=== PATIENT | female | born 1995 | race Caucasian/White ===

== ENCOUNTER 2020-01-15 13:56 | Emergency (ER) | payer OTHER, SELFPAY ==
[2020-01-15 14:14] VITALS: BP 141/83; PULSE 84; RESP 17; O2SAT 100
[2020-01-15] MEDS: ONDANSETRON HCL ODT 4 MG TABLET PO (15:25)
--- NOTE | 2020-01-15 15:32 | ED.GENADULT ---
HPI - General Adult General Chief complaint: Extremity Injury, Lower Stated complaint: hip pain Time Seen by Provider: 01/15/20 14:37 Source: patient History of Present Illness HPI narrative: 24 years old history of left hip ligament injury over 10 months ago, scheduled for surgery, patient been to pain management clinic, steroid injection, been on anti-inflammatory medicine and muscle relaxant. Patient was not able to get hold of her orthopedic/pain management physician came for pain shot. Patient reported that the NSAID and muscle relaxants are not working. Patient denies any new trauma, fever, chills, nausea, vomiting. Patient just would like to get a pain shot to get some relief. Related Data Home Medications Medication Instructions Recorded Confirmed meloxicam 15 mg tablet 15 mg PO DAILY 09/21/19 09/27/19 Allergies Allergy/AdvReac Type Severity Reaction Status Date / Time lamotrigine Allergy Mild Rash Verified 01/15/20 14:16 pineapple Allergy Unknown ORAL Verified 01/15/20 14:16 SWELLING Review of Systems Review of Systems: Narrative: CONSTITUTIONAL: Denies fever, chills, or sweats. EYES: Denies visual changes, redness, or discharge. ENT: Denies rhinorrhea, congestion, sore throat, or otalgia. CARDIOVASCULAR: Denies chest pain, palpitations, or edema. RESPIRATORY: Denies cough or dyspnea. GASTROINTESTINAL: Denies abdominal pain, nausea, vomiting, or diarrhea. GENITOURINARY: Denies dysuria or hematuria. SKIN: Denies rash or itching. MUSCULOSKELETAL: Denies back pain, joint pain, or myalgia. NEUROLOGIC: Denies headache, numbness, or weakness. PSYCHIATRIC: Denies anxiety or depression. [facility] Past Medical History Medical History Anemia Cervical tear resulting from childbirth Third degree obstetrical tear Family History Family History Mother Family history of mental disorder Depression Family history of kidney stones Sibling Family history of mental disorder Depression Father Family history of diabetes mellitus in first degree relative Other Family history of cardiovascular disease Family history of neuropathy Social History Social History Smoking status: Never smoker Second hand tobacco smoke exposure: No Alcohol intake: current Substance use: never Exam Narrative: Exam Narrative: General appearance: Well-developed, well-nourished Skin: Normal color Head: Normocephalic, nontraumatic Eyes: Clear conjunctiva ENT: Oropharynx normal, ears normal, nose normal Neck: Supple, nontender Chest and respiratory: Airway patent, no respiratory distress, no accessory muscle use Heart: Regular rate/rhythm Abdomen: Soft, nontender, no organomegaly, quiet bowel sounds Vascular: Normal peripheral pulses, normal capillary refill. Musculoskeletal: Normal range of motion, nontender back, left hip showed slight limited range of motion, no bruises, no swelling, no deformity Neurologic: Alert and oriented ?3, [employer] is normal as tested, no gross motor deficit Course Course Emergency Course: Stable Vital Signs Vital signs: Vital Signs Pulse Rate 84 01/15/20 14:14 Respiratory Rate 17 01/15/20 14:14 Blood Pressure 141/83 H 01/15/20 14:14 Pulse Oximetry 100 01/15/20 14:14 Pulse Rate 84 01/15/20 14:14 Respiratory Rate 17 01/15/20 14:14 Blood Pressure 141/83 H 01/15/20 14:14 Pulse Oximetry 100 01/15/20 14:14 Medical Decision Making MDM Narrative Medical decision making narrative: Dilaudid 1 mg IM plus Zofran 4 mg ODT ordered. Further
[2020-01-15 16:21] VITALS: BP 143/74; PULSE 83; RESP 18; O2SAT 100
== END 2020-01-15 16:24 | disposition home or self-care (01) ==
PROVIDERS: Emergency Provider Emergency Medicine; PCP Physician Assistant
DX: M25.552 Pain in left hip (principal)
CPT/HCPCS: 96372; 99283; A9270; J1170

== ENCOUNTER 2020-10-05 20:55 | Emergency (ER) | payer OTHER, SELFPAY ==
[2020-10-05 20:57] VITALS: BP 134/75; PULSE 85; RESP 18; TEMP 36.2; O2SAT 100
[2020-10-05] MEDS: oxyCODONE/ACETAMINOPHEN (*CRX) 5-325 MG TABLET 1 TABLET PO (21:50)
--- NOTE | 2020-10-05 21:59 | ED.DENTAL ---
HPI - Dental/Oral General Chief complaint: Dental/Oral Stated complaint: broken teeth, pain Time Seen by Provider: 10/05/20 20:59 History of Present Illness HPI Narrative: Patient is a 25-year-old female who presents to the ER with dental pain. Teeth on the left side mainly lower jaw. She suffered a stress fracture while biting on the seat of a mixed aleman smoothie 6 days ago. She is gone undergo root canal in the next 4 days. No fevers or chills or sweats. No facial swelling. Pain increases with intake of fluids, breathing, and tapping of the teeth. No relief with Tylenol 3. Related Data Home Medications Medication Instructions Recorded Confirmed escitalopram oxalate 10 mg tablet 20 mg PO DAILY tablet 07/10/20 07/11/20 Allergies Allergy/AdvReac Type Severity Reaction Status Date / Time lamotrigine Allergy Mild Rash Verified 10/05/20 20:59 pineapple Allergy Unknown ORAL Verified 10/05/20 20:59 SWELLING Review of Systems Constitutional: Constitutional: Denies chills and Denies fever(s) ENT: Denies dysphagia Comments: Dental pain Respiratory: Respiratory: Denies cough and Denies dyspnea PMFSH Past Medical History Medical History (Updated 10/05/20 @ 22:12 by Adan Casiano MD) Anemia Cervical tear resulting from childbirth Third degree obstetrical tear Family History Family History Mother Family history of mental disorder Depression Family history of kidney stones Sibling Family history of mental disorder Depression Father Family history of diabetes mellitus in first degree relative Other Family history of cardiovascular disease Family history of neuropathy Social History Social History Smoking status: Never smoker Second hand tobacco smoke exposure: No Alcohol intake: former Substance use: never Gender identity (if verbalized by the patient): Female Sexual Orientation (if Verbalized by the Patient): Straight or Heterosexual Exam Narrative: Exam Narrative: GENERAL: Well-appearing, well-nourished, and in no acute distress. HEAD: Normocephalic, atraumatic. ENT: Mucous membranes moist. No visual evidence of abscess. No facial swelling. No large fracture of teeth. NEURO: Alert and oriented x3. PSYCH: Normal mood and affect. Course Course Emergency Course: Pain improving with Percocet. Discharge home. Vital Signs Vital signs: Vital Signs Temperature 97.1 F L 10/05/20 20:57 Pulse Rate 85 10/05/20 20:57 Respiratory Rate 18 10/05/20 20:57 Blood Pressure 134/75 10/05/20 20:57 Pulse Oximetry 100 10/05/20 20:57 Temperature 97.1 F L 10/05/20 20:57 Pulse Rate 85 10/05/20 20:57 Respiratory Rate 18 10/05/20 20:57 Blood Pressure 134/75 10/05/20 20:57 Pulse Oximetry 100 10/05/20 20:57 Discharge Plan Discharge Clinical Impression: Fracture of tooth Patient Disposition: Home, Self-Care Condition: Stable Instructions: Toothache (ED) Additional Instructions: Return to the ER if you cannot breathe, you cannot swallow, you have fever over 100.4 ?F, you have additional concerns. Prescriptions: New oxycodone-acetaminophen [Percocet] 5-325 mg tablet 1 tablet PO Q6H PRN (Reason: pain) Qty: 20 RF: 0 No Action escitalopram oxalate [Lexapro] 10 mg tablet 20 mg PO DAILY RF: 0 alprazolam 1 mg tablet 1 mg PO TID PRN (Reason: anxiety) Qty: 14 RF: 0 levothyroxine 25 mcg tablet 25 mcg PO DAILY Qty: 90 RF: 3 bupropion HCl [Wellbutrin XL] 150 mg tablet extended release 24 hr 150 mg PO QAM Qty: 30 RF: 0 hydrocodone-acetaminophen 5-325 mg tablet 1 tablet PO Q6H PRN (Reason: pain) Qty: 60 RF: 0 Follow-up/Referrals: Jovan Gomez DO [Primary Care Provider] -
== END 2020-10-05 22:20 | disposition home or self-care (01) ==
PROVIDERS: Emergency Provider Emergency Medicine; PCP Internal Medicine
DX: S02.5XXA Fracture of tooth (traumatic), initial encounter for closed fracture (principal); Z86.2 Personal history of diseases of the blood and blood-forming organs and certain disorders involving the immune mechanism; X58.XXXA Exposure to other specified factors, initial encounter
CPT/HCPCS: 99283; A9270

== ENCOUNTER 2021-04-02 18:50 | Emergency (ER) | payer OTHER, SELFPAY ==
[2021-04-02 18:56] VITALS: BP 127/85; PULSE 95; RESP 18; TEMP 36.5; O2SAT 100
[2021-04-02 19:50] VITALS: BP 121/88; PULSE 93; RESP 14; O2SAT 100
[2021-04-02 21:20] VITALS: BP 113/86; PULSE 97; RESP 20; TEMP 36.8; O2SAT 98
--- NOTE | 2021-04-02 21:36 | ED.DENTAL ---
HPI - Dental/Oral General Chief complaint: Dental/Oral Stated complaint: dental infection Time Seen by Provider: 04/02/21 20:12 Source: patient Mode of arrival: ambulatory Limitations: no limitations History of Present Illness HPI Narrative: Patient complaining of dental pain, increasing abscess at dental tooth since seeing dentist earlier this week. Patient had a root canal done in September and states she has had trouble since then. Now complaining of frontal dental abscess worse with eating and drinking, improves with nothing. No difficulty swallowing, patient currently taking amoxicillin without relief. No fever. No facial swelling. MD Complaint: tooth pain Teeth map: 1. Related Data Home Medications Medication Instructions Recorded Confirmed escitalopram oxalate 10 mg tablet 20 mg PO DAILY tablet 07/10/20 07/11/20 duloxetine 60 mg capsule,delayed 60 mg PO DAILY 02/06/21 02/06/21 release Allergies Allergy/AdvReac Type Severity Reaction Status Date / Time lamotrigine Allergy Mild Rash Verified 04/02/21 21:49 pineapple Allergy Unknown ORAL Verified 04/02/21 21:49 SWELLING Review of Systems Review of Systems: CONSTITUTIONAL: no fever, no weight loss, no confusion EYES: no vision changes, no eye pain ENT: no rhinorrhea, no sore throat, no difficulty swallowing, dental pain, dental abscess CARDIOVASCULAR: no chest pain, no leg edema, no palpitations RESPIRATORY: no cough, no shortness of breath, no hemoptysis GASTROINTESTINAL: no abdominal pain, no nausea, no vomiting, no diarrhea GENITOURINARY: no flank pain, no dysuria, no hematuria SKIN: no rash, no jaundice MUSCULOSKELETAL: no back pain, no trauma. NEUROLOGIC: No headache, no dizziness, no focal weakness PSYCHIATRIC: No hallucinations, no suicidal ideation [facility] Past Medical History Medical History (Updated 04/03/21 @ 12:04 by Darin Strong PA-C) Anemia Cervical tear resulting from childbirth Third degree obstetrical tear Family History Family History Mother Family history of mental disorder Depression Family history of kidney stones Sibling Family history of mental disorder Depression Father Family history of diabetes mellitus in first degree relative Other Family history of cardiovascular disease Family history of neuropathy Social History Social History Smoking status: Never smoker Second hand tobacco smoke exposure: No Alcohol intake: former Substance use: never Gender identity (if verbalized by the patient): Female Sexual Orientation (if Verbalized by the Patient): Straight or Heterosexual Exam Narrative: General: alert, afebrile, answering all questions appropriately Head: normocephalic, atraumatic Eyes: EOMI bilaterally, anicteric, no injection ENT: moist mucous membranes, oropharynx patent, no rhinorrhea Dental pain, no apical swelling noted at tooth #6, multiple caries Neck: supple, trachea midline, no swelling, no Ludwigs Chest: equal chest rise bilaterally, no chest wall trauma notedm EXT: no deformity noted, moving all extremities equally Skin: warm, dry, no pallor Neuro: alert, oriented x 3; CN 2-12 grossly intact, no dysarthria Psych: affect appropriate, though content normal Course Course Emergency Course: Patient with continued dental pain for the past few days despite being on amoxicillin she has follow-up with her dentist this week. She believes this has been ongoing since September and worse over the past few days since having a dental procedure done. No fever, no facial swelling, no difficulty swallowing. Patient given a medication in the ED and will be discharged with ibuprofen as well as Augmentin. Patient to consider taking Augmentin since it is stronger. Patient will return immediately if facial swelling, fever, neck swelling or any swelling that crosses the midline. All ques
[2021-04-02] MEDS: HYDROcodone/acetaminophen (*CRX) 5-325 MG TABLET 1 TAB PO (21:47)
[2021-04-02] MEDS: AMOXICILLIN/CLAVULANATE K 875-125 MG TAB 1 TABLET PO (21:47)
[2021-04-02] MEDS: IBUPROFEN 600 MG TABLET PO (21:48)
== END 2021-04-02 22:08 | disposition home or self-care (01) ==
PROVIDERS: Emergency Provider Emergency Medicine; PCP Physician Assistant
DX: K08.89 Other specified disorders of teeth and supporting structures (principal); Z86.2 Personal history of diseases of the blood and blood-forming organs and certain disorders involving the immune mechanism
CPT/HCPCS: 99283; A9270

== ENCOUNTER 2021-04-27 20:46 | Emergency (ER) | payer OTHER, SELFPAY ==
--- NOTE | ~2021-04-27 | XR_ITS ---
XR shoulder LT min 2V 04/27/2021 22:05 INDICATION: Left shoulder pain PROCEDURE: 4 views left shoulder COMPARISON: No prior studies for comparison. FINDINGS: Fracture, dislocation or subluxation is not identified. The soft tissues appear within norm al limits. No foreign bodies are identified. IMPRESSION: 1: NO ACUTE BONE OR JOINT ABNORMALITY IDENTIFIED. Reviewed, dictated and finalized at location A.
[2021-04-27 21:10] VITALS: BP 130/84; PULSE 103; RESP 20; TEMP 36.8; O2SAT 100
[2021-04-27] MEDS: IBUPROFEN 400 MG TABLET 800 MG PO (22:09)
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
== END 2021-04-27 22:55 | disposition home or self-care (01) ==
PROVIDERS: Emergency Provider Emergency Medicine; PCP Physician Assistant
DX: S49.92XA Unspecified injury of left shoulder and upper arm, initial encounter (principal); Z86.2 Personal history of diseases of the blood and blood-forming organs and certain disorders involving the immune mechanism; W03.XXXA Other fall on same level due to collision with another person, initial encounter
CPT/HCPCS: 73030; 99283; A4565; A9270

== ENCOUNTER 2021-05-01 18:51 | Emergency (ER) | payer SELFPAY ==
[2021-05-01 19:12] VITALS: BP 136/88; PULSE 94; RESP 16; TEMP 36.8; O2SAT 99
--- NOTE | 2021-05-01 19:44 | ED.UPPEXIN ---
HPI - Extremity Injury (Upper) General Chief Complaint: Extremity Injury, Upper Stated Complaint: Shoudler pain, previous dislocation Time Seen by Provider: 05/01/21 19:39 Source: patient Mode of arrival: ambulatory Limitations: no limitations History of Present Illness HPI narrative: This is a 26 year old female that presents to the ER for left shoulder pain worsening over the last couple of days. Reports an injury 4 days ago for which she was evaluated in the ED here. She saw her orthopedics doctor the next day. She is scheduled for an MRI next week. Presents today for pain that is not controlled with [id number] medications. Denies fever, erythema, edema, or numbness. Related Data Home Medications Medication Instructions Recorded Confirmed escitalopram oxalate 10 mg tablet 20 mg PO DAILY tablet 07/10/20 07/11/20 duloxetine 60 mg capsule,delayed 60 mg PO DAILY 02/06/21 02/06/21 release Allergies Allergy/AdvReac Type Severity Reaction Status Date / Time lamotrigine Allergy Mild Rash Verified 05/01/21 19:38 pineapple Allergy Unknown ORAL Verified 05/01/21 19:38 SWELLING Review of Systems Review of Systems: CONSTITUTIONAL: Denies fever SKIN: Denies rash MUSCULOSKELETAL: Reports joint pain, and myalgia. NEUROLOGIC: Denies numbness All systems reviewed & are unremarkable except as noted in HPI and below PMFSH Past Medical History Medical History (Updated 05/01/21 @ 20:00 by Krupa Edmond PA-C) Anemia Cervical tear resulting from childbirth Third degree obstetrical tear Family History Family History Mother Family history of mental disorder Depression Family history of kidney stones Sibling Family history of mental disorder Depression Father Family history of diabetes mellitus in first degree relative Other Family history of cardiovascular disease Family history of neuropathy Social History Social History Smoking status: Never smoker Second hand tobacco smoke exposure: No Alcohol intake: former Substance use: never Gender identity (if verbalized by the patient): Female Sexual Orientation (if Verbalized by the Patient): Straight or Heterosexual Exam Narrative: GENERAL: Well-appearing, well-nourished, and in no acute distress. HEAD: Normocephalic, atraumatic. EYES: EOMI. EXTREMITIES: Sling is in place. Decreased active ROM in the left shoulder due to pain. No edema. Normal radial pulses. Normal sensation SKIN: Warm, dry, no rash. NEURO: No focal deficits. Alert and oriented x3. PSYCH: Normal mood and affect Course Vital Signs Vital signs: Vital Signs Temperature 98.3 F 05/01/21 19:12 Pulse Rate 94 05/01/21 19:12 Respiratory Rate 16 05/01/21 19:12 Blood Pressure 136/88 05/01/21 19:12 Pulse Oximetry 99 05/01/21 19:12 Temperature 98.3 F 05/01/21 19:12 Pulse Rate 94 05/01/21 19:12 Respiratory Rate 16 05/01/21 19:12 Blood Pressure 136/88 05/01/21 19:12 Pulse Oximetry 99 05/01/21 19:12 MDM - Extremity Injury (Upper) MDM Narrative Medical decision making narrative: Patient presents to the emergency department for left shoulder pain after an injury 3 days ago. Was initially evaluated in the ED here with a normal x-ray of her shoulder. Saw her orthopedics doctor the next day. She is currently in a sling. She is scheduled for an MRI next week. She reports today as her pain was not controlled with [id number] medications. Denies any new injury or trauma. She is neurovascularly intact. Patient will be given a short course of pain medication as needed. She was instructed to follow back up with orthopedic doctor. She was given warnings to return to the ER Critical Care Time Critical Care Time Critical Care Time: No Discharge Plan Discharge Clinical Impression: Sprain of left shoulder Qualifiers: Encounter
[2021-05-01] MEDS: HYDROcodone/acetaminophen (*CRX) 5-325 MG TABLET 1 TAB PO (20:11)
[2021-05-01 20:30] VITALS: BP 117/81; PULSE 93; RESP 18; O2SAT 99
== END 2021-05-01 20:31 | disposition home or self-care (01) ==
PROVIDERS: Emergency Provider Emergency Medicine; PCP Physician Assistant
DX: S43.402A Unspecified sprain of left shoulder joint, initial encounter (principal); Z86.2 Personal history of diseases of the blood and blood-forming organs and certain disorders involving the immune mechanism; X58.XXXA Exposure to other specified factors, initial encounter
CPT/HCPCS: 99283; A9270

== ENCOUNTER 2021-10-04 16:36 | Outpatient (CLI) | payer BC, SELFPAY ==
[2021-10-05 07:30] LABS: Kit Draw Collected
== END 2021-10-04 16:37 | disposition home or self-care (01) ==
PROVIDERS: PCP Physician Assistant
DX: M04.9 Autoinflammatory syndrome, unspecified (principal); K58.9 Irritable bowel syndrome, unspecified; D80.2 Selective deficiency of immunoglobulin A [IgA]; R53.83 Other fatigue
CPT/HCPCS: 99199; 36415

== ENCOUNTER 2023-12-09 14:30 | Emergency (ER) | payer OTHER, SELFPAY ==
[2023-12-09 14:32] VITALS: BP 122/81; PULSE 96; RESP 15; TEMP 37.2; O2SAT 98
--- NOTE | 2023-12-09 15:24 | ED.BACK ---
HPI - Back Pain/Injury General Chief Complaint: Back Pain/Injury Stated Complaint: back pain Time Seen by Provider: 12/09/23 15:08 History of Present Illness HPI Narrative: Pt presents with pain under right shoulder blade that started after she picked up her child. Pt says it is worse when she moves her right shoulder. Pt denies fall or direct trauma. Related Data Allergies Allergy/AdvReac Type Severity Reaction Status Date / Time lamotrigine Allergy Mild Rash Verified 12/09/23 15:12 pineapple Allergy Unknown ORAL Verified 12/09/23 15:12 SWELLING Review of Systems Review of Systems: All systems reviewed & are unremarkable except as noted in HPI and below PMFSH Past Medical History Medical History Anemia Cervical tear resulting from childbirth Hip dysplasia Perineal repair breakdown Third degree obstetrical tear Surgical History Surgical History History of hip surgery History of shoulder surgery Family History Family History Mother Family history of mental disorder Depression Family history of kidney stones Sibling Family history of mental disorder Depression Father Family history of diabetes mellitus in first degree relative Other Family history of cardiovascular disease Family history of neuropathy Social History Social History Smoking status: Never smoker Second hand tobacco smoke exposure: No Alcohol intake: former Substance use: never Current Housing: Decline to Answer Concerned About Future Housing: Decline to Answer Difficulty Paying Gas/Electric Bills: Decline to Answer Difficulty Paying for Meds: Decline to Answer Currently Unemployed: Decline to Answer Education: Decline to Answer Difficulty w/ Childcare or Family Care: Decline to Answer Gender identity (if verbalized by the patient): Female Sexual Orientation (if Verbalized by the Patient): Straight or Heterosexual Exam Const: General: healthy appearing and no acute distress Nutritional Appearance: well nourished Orientation/consciousness: patient oriented x3 Limitations: no limitations Resp: Effort & Inspection: normal respiratory effort Auscultation: clear to auscultation bilaterally Cardio: Rate: regular rate Rhythm: regular rhythm GI: GI Palp: Yes Soft to palpation and No Tenderness to palpation present (GI) Back/Spine/Pelvis: Other: tender under right scapula with some spasm no swelling Skin: General skin exam: normal color Rashes: no rashes Wounds: no wounds Neuro: General: patient oriented x3, moves all extremities, no meningeal signs, no focal motor deficits and CN's II-XI intact bilaterally Speech: normal speech Extrem: General: normal to inspection and no clubbing, cyanosis or edema Psych: Mental Status: mental status grossly normal Affect: normal affect Attitude: cooperative Course Vital Signs Vital signs: Vital Signs Temperature 98.9 F 12/09/23 14:32 Pulse Rate 96 12/09/23 14:32 Respiratory Rate 15 12/09/23 14:32 Blood Pressure 122/81 12/09/23 14:32 Pulse Oximetry 98 12/09/23 14:32 Oxygen Delivery Room Air 12/09/23 14:32 Temperature 98.2 F 12/09/23 17:27 Pulse Rate 69 12/09/23 17:27 Respiratory Rate 17 12/09/23 17:27 Blood Pressure 120/78 12/09/23 17:27 Pulse Oximetry 100 12/09/23 17:27 Oxygen Delivery Room Air 12/09/23 14:32 MDM - Back Pain/Injury MDM Narrative Medical decision making narrative: likely muscle strain or sprain, no direct trauma so not fx. will give toradol and muscle relaxer. some improvement but still hurting. gave fentanyl and got relief. home on meds. Discharge Plan Discharge Clinical Impression: Strain of right latissimus dorsi muscle Patient Disposition: Home, Self-
[2023-12-09] MEDS: KETOROLAC 30 MG/ML VIAL (*BKC) IM (15:40)
[2023-12-09] MEDS: TIZANIDINE HCL 1 MG TABLET PO (15:40)
[2023-12-09] MEDS: fentaNYL CITRATE INJ (*CRX) 100 MCG/2 ML VIAL 50 MCG IM (16:13)
[2023-12-09 17:27] VITALS: BP 120/78; PULSE 69; RESP 17; TEMP 36.8; O2SAT 100
== END 2023-12-09 17:29 | disposition home or self-care (01) ==
PROVIDERS: Emergency Provider Emergency Medicine; PCP Internal Medicine
DX: S29.012A Strain of muscle and tendon of back wall of thorax, initial encounter (principal); Z86.2 Personal history of diseases of the blood and blood-forming organs and certain disorders involving the immune mechanism; X50.0XXA Overexertion from strenuous movement or load, initial encounter
CPT/HCPCS: 96372; 99284; A9270; J1885; J3010

== ENCOUNTER 2024-07-12 14:08 | Outpatient (CLI) | payer OTHER, SELFPAY ==
--- NOTE | ~2024-07-12 | XR_ITS ---
3 VIEWS THORACIC SPINE Ordering provider: Melia Bautista MD History: . BACK PAIN . Comparison: None. FINDINGS: VERTEBRAL BODIES: Normal height and alignment. No visible fracture or subluxation. DISK SPACES: Normal. SOFT TISSUES: Normal. IMPRESSION: No acute osseous abnormality of the thoracic spine. Reviewed, dictated and finalized at location A. [facility]
== END 2024-07-12 14:09 | disposition home or self-care (01) ==
PROVIDERS: PCP Physical Medicine & Rehabilitation Pain Medicine; Visit Provider Physical Medicine & Rehabilitation Pain Medicine
DX: M54.9 Dorsalgia, unspecified (principal)
CPT/HCPCS: 72070

== ENCOUNTER 2024-10-11 13:35 | Outpatient (CLI) | payer OTHER, SELFPAY ==
--- NOTE | ~2024-10-11 | XR_ITS ---
Left Shoulder Technique: AP and scapular Y views were obtained. Clinical History: Pain Findings: No fracture or dislocation is seen. Osseous alignment is anatomic. The glenohumeral and acr omioclavicular joint spaces are preserved. Soft tissues are unremarkable. Impression: Unremarkable left shoulder radiographs. Reviewed, dictated and finalized at [facility]. Impression: Unremarkable left shoulder radiographs.
== END 2024-10-11 13:36 | disposition home or self-care (01) ==
LOC: GOSHIMG 13:38
PROVIDERS: PCP Physical Medicine & Rehabilitation Pain Medicine; Visit Provider Physical Medicine & Rehabilitation Pain Medicine
DX: M25.519 Pain in unspecified shoulder (principal)
CPT/HCPCS: 73030

== ENCOUNTER 2024-11-15 17:59 | Emergency (ER) | payer OTHER, SELFPAY ==
--- NOTE | ~2024-11-15 | XR_ITS ---
EXAMINATION: XR ribs RT 2V Exam Date/Time: 11/15/2024 18:15 CDT HISTORY: THINKS SHE DISLOCATED A RIB PUSHING A SHOPPING Comparison: None available. RESULT: Lines, tubes, and devices: None. Lungs and pleura: Clear. Cardiothymic silhouette: Stable. Other: No acute osseous or upper abdominal finding. IMPRESSION: No acute osseous finding in the right ribs. Reviewed, dictated and finalized at location K.
--- OUTSIDE RECORDS SUMMARY | 2024-11-15 18:01 | XMS_ITS | Clinical Summary ---
Author Organization [facility] Address [address] [place] [phone] Phone Care Team Providers Care Grinder Set Up Operator Jig Name Role Phone Unavailable Primary Care Provider Unavailabl e Allergies Active Allergy Reactions Criticality Noted Date Comments Lamotrigine Rash Medium 04/04/2022 Pineapple Anaphylaxis High 04/04/2022 Medications levothyroxine 50 mcg tablet Take 50 mcg by mouth daily in the morning. 50 mg every day except for Friday and Friday is 100 mg Active progesterone micronized (Prometrium) 100 mg Capsule Take by mouth in addition to 200mg capsule on P+3-12. 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 07/24/2023 KASH (generalized anxiety disorder) 07/24/2023 Hypothyroidism 06/05/2022 Resolved Problems Problem Noted Date Diagnosed Date Resolved Date care of multigravida, antepartum 06/05/2022 01/16/2023 Encounters Date Type Department Care Team Description 09/04/2024 External Device Data ST[facility] ABSTRACTION Provider, Abstract 09/03/2024 External Device Data [facility] ABSTRACTION Provider, Abstract 09/01/2024 External Device Data [facility] ABSTRACTION Provider, Abstract 08/18/2024 External Device Data [facility] ABSTRACTION Provider, Abstract 08/18/2024 External Device Data ST[facility] ABSTRACTION Provider, Abstract from Last 3 Months Family History Medical History Relation Name Comments Breast Cancer Neg Hx Colon Cancer Neg Hx Ovarian Cancer Neg Hx Social History Tobacco Use Types Packs/Day Years Used Date Smoking Tobacco: Never Smokeless Tobacco: Never Tobacco Cessation:Counseling Given: Not Answered Alcohol Use Standard Drinks/Week Comments Not Currently 0 (1 standard drink = 0.6 oz pur e alcohol) Feeling Safe Answer Date Recorded Are you in a relationship wi th someone who hurts you emotionally and/or physically? Unable to obtain 04/02/2023 Food Insecurity Answer Date Recorded Social/Environmental Concerns No concerns Transportation Needs Answer Date Record ed Social/Environmental Concerns No concerns Housing Stability Answer Date Recorded Social/Environmental Concerns No concerns Utility Needs Answer Date Recorded Social/Environmental Concerns No concerns Comments No Sex and Gender Information Value Date Recorded Sex Assigned at Not on file Legal Sex Female 2:12 PM CDT Gender Identity Not on file Sexual Orientation Not on file Last Filed Vital Signs Vital Sign Reading Time Taken Comments Blood Pressure 110/64 10/01/2023 11:55 AM CDT Pulse 90 04/02/2023 3:35 PM CDT Temperature 36 C (96.8 F) 04/02/2023 3:35 PM CDT Respiratory Rate 18 04/02/2023 3:35 PM CDT Oxygen Saturation 96% 04/02/2023 3:35 PM CDT Inhaled Oxygen Concentration - - Weight 76.2 kg (168 lb) 10/01/2023 11:55 AM CDT Height 172.7 cm (5' 8 ) 10/01/2023 11:55 AM CDT Body Mass Index 25.54 10/01/2023 11:55 AM CDT Plan of Treatment Health Maintenance Due Date Last Done Comments DTAP/TDAP/TD VACCINES (1 - Tdap) 2013 HEPATITIS B VACCINES (1 of 3 - 19+ 3-dose series) 2013 HPV/Cotest (21-29) 2015 INFLUENZA VACCINE (#1) 2024 HPV/Cotest (30-65) 2024 CERVICAL CANCER SCREENING 01/07/2025 PAP SMEAR 01/07/2025 01/07/2022 HPV VACCINES Aged Out No longer eligi ble based on patient's age to complete this topic Goals Goal Patient Goal Type Associated Problems Recent Progress Patient-Stated? Author Patient Stated General Yes Seven [place] Note: 07/31/2023 Today's SMART Goal: Patient will utilize boxed breathing and 5 4 3 2 1 senses By the next contact. Progress: Completed and found boxed breathing most helpful. Insurance [employer] OPEN ACCESS HMO RX [employer] Express Advance Directives For more information, please contact: [phone] * Full Code (Latest Code Status on File) Date Activated Date Inactivated Comments 04/02/2023 12:46 PM 04/02/2023 5:48 PM * Full Code Date Activated Date Inactivated Comments 04/02/2023 10:08 AM 04/02/2023 12:46 PM * Full Code Date Activated Date Inactivated Comments 04/02/2023 9:15 AM 04/02/2023 10:08 AM * Full Code Date Activated Date Inactivated Comments 11/29/2022 5:21 PM 11/30/2022 6:40 PM * Full Code Date Activated Date Inactivated Comments 11/29/2022 5:21 PM 11/29/2022 5:21 PM
--- OUTSIDE RECORDS SUMMARY | 2024-11-15 18:01 | XMS_ITS | Clinical Summary ---
Author Organization [facility] Address [address] [address] Care Team Providers Care Brake Operator Heavy Duty Name Role Phone Jovan Gomez MD Primary Care Provider [phone] Moira Heck PT Unavailable [phone] Allergies Active Allergy Reactions Criticality Noted Date Comments Lamotrigine Rash Medium Pineapple Anaphylaxis High 04/04/2022 Medications ibuprofen (ADVIL,MOTRIN) 200 mg tab/cap Take 2 tablet/capsule (400 mg total) by mouth every 6 (six) hours as needed for pain Active acetaminophen (TYLENOL) 500 mg tablet Take 1 tablet (500 mg total) by mouth every 6 (six) hours as needed for pain Active levothyroxine (SYNTHROID) 50 mcg tabletIndicatio ns:hypothyroidi sm Take 1 tablet (50 mcg total) by mouth early learning teacher before breakfast Active HYDROcodone-torie taminophen (NORCO) 5-325 mg per tabletIndicatio ns:Pain Take 1-2 tablets by mouth every 4 (four) hours as needed for pain 40 tablet 2 Active Additional Information Patient not taking.Reported on 10/23/2023 progesterone (PROMETRIUM) 100 mg capsule TAKE BY MOUTH IN ADDITION TO 200MG CAPSULE ON P+3-12. Active progesterone (PROMETRIUM) 200 mg capsule TAKE 1 CAPSULE BY MOUTH AT BEDTIME ON PEAK PLUS DAYS 3 THROUGH 12 Active lidocaine (LIDODERM) 5 % Apply 1 patch topically once for 1 dose Remove & discard patch within 12 hours or as directed by . 30 patch 2 4 Active Active Problems Problem Noted Date Diagnosed Date Instability of left shoulder joint 11/19/2021 Overview (11/19/2021): Added automatically from request for surgery [id number] Anxiety 05/10/2020 Depression 05/10/2020 Hypothyroidism 05/10/2020 History of anemia 05/10/2020 Retained orthopedic hardware 04/11/2020 Overview (04/11/2020): Added automatically from request for surgery [id number] Femoroacetabular impingement of left hip 020 Overview (04/11/2020): Added automatically from request for surgery [id number] Abnormal CT of liver 11/11/2018 Arthralgia of hip 07/16/2017 Surgical follow-up care 07/10/2016 Surgical History Surgery Date Site/Laterality Comments FLUORO GUIDED ASPIRATION OR INJECTION LARGE JOINT LEFT 12/13/2019 Left HIP OSTEOTOMY 06/30/2015 - 07/30/2015 Left HIP ARTHROSCOPY Bilateral 06/2015 Left; 05/2013 Right; 11/2012 Right DIAGNOSTIC LAPAROSCOPY 06/30/2014 - 06/29/2015 for endometriosis CERVIX SURGERY 06/30/2016 - 06/29/2017 Repair cervical laceration/tear from childbirth FLUORO GUIDED INJECTION SHOULDER LEFT 08/31/2021 Left HIP ARTHROSCOPY 05/10/2020 Left Medical History Medical History Date Comments Woody-Danlos syndrome Thyroid disease hypothyroid Hip dysplasia Hypothyroidism Covid-19 04/2020 Family History Medical History Relation Name Comments Diabetes Father Family history of diabetes mellitus - (Added by TW Conv) Heart attack Father Silent per pt Anesthesia problems Neg Hx Relation Name Status Comments Father Alive Mother Alive Social History Tobacco Use Types Packs/Day Years Used Date Smoking Tobacco: Never Smokeless Tobacco: Never Alcohol Use Standard Drinks/Week Comments Not Currently 0 (1 standard drink = 0.6 oz pur e alcohol) Rare AUDIT-C Answer Date Recorded Q1: How often do you have a drink containing alc ohol? 2-4 times a month 11/21/2021 Q2: How many drinks containi ng alcohol do you have on a typical day when you are drinking? 1 or 2 11/21/2021 Q3: How often do you have si x or more drinks on one occasion? 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 Not on file Not on file Obstetrics History Last Filed Vital Signs Vital Sign Reading Time Taken Comments Blood Pressure 102/75 12/18/2021 2:30 PM CDT Pulse 100 12/18/2021 2:35 PM CDT Temperature 36.4 C (97.5 F) 12/18/2021 3:04 PM CDT Respiratory Rate 22 12/18/2021 2:35 PM CDT Oxygen Saturation 96% 12/18/2021 2:35 PM CDT Inhaled Oxygen Concentration - - Weight 83.6 kg (184 lb 3.2 oz) 12/18/2021 8:30 A M CDT Height 170.2 cm (5' 7 ) 12/18/2021 8:30 AM CDT Body Mass Index 28.85 12/18/2021 8:30 AM CDT Plan of Treatment Health Maintenance Due Date Last Done Comments Cervical Cancer Screening 1994 Depression Screening 1994 Hepatitis C Screening 1994 DTaP/Tdap/Td Vaccine (1 - Tdap) 2005 Varicella Vaccines (1 of 2 - 13+ 2-dose series) 2007 Hepatitis B Screening 2012 Regular Well Visit/Exam 18-64 2012 Influenza Vaccine (Season Ended) 2025 HPV Vaccines Aged Out No longer eligi ble based on patient's age to complete this topic Pneumococcal vaccine <65 Aged Out No longer eligible based on patient's age to complete this topic Medical Devices Implanted Type Area Director Hris Device Identifier Shelf Expiration Date Model / Serial / Lot [employer] Suturetak Tigerwire 3mm 14.5mm 2 [place] Suture Fiberwire [id number] - [id number] Implanted:Qty: 1 on 12/18/2021 by Sam Gallo MD at [facility] Left: Shoulder [employer] 07/30/2025 [id number] / / [id number] Description:[employer] SUTU RETAK TIGERWIRE 3MM 14.5MM 2 ANCHOR SUTURE FIBERWIRE [id number] - [id number] [employer] Suturetak Fiberwire Arthrex 3mm 12.7mm Knotless Cruciate Ligament [id number] - [id number] Implanted:Qty: 1 on 12/18/2021 by Sam Gallo MD at [facility] [place] Left: Shoulder [employer] 07/30/2023 [id number] / / [id number] Description:[employer] SUTU RETAK FIBERWIRE ARTHREX 3MM 12.7MM KNOTLESS CRUCIATE LIGAMENT [id number] - [id number] [employer] Suturetak Fiberwire Arthrex 3mm 12.7mm Knotless Cruciate Ligament [id number] - [id number] Implanted:Qty: 1 on 12/18/2021 by Sam Gallo MD at [facility] [place] Left: Shoulder [employer] 07/30/2023 [id number]-[id number] / / [id number] Description:[employer] SUTU RETAK FIBERWIRE ARTHREX 3MM 12.7MM KNOTLESS CRUCIATE LIGAMENT [id number] - [id number] Explanted Type Area Director Hris Device Identifier Shelf Expiration Date Model / Serial / Lot Screw Explanted:Qty: 4 on 05/10/2020 by Roberto Perez MD at [facility] Screw Left: Hip Description:Previous TAYLOR scr ews removed. Insurance O-RID ACCESS CHOICE ANTHEM ACCESS CHOICE CIGNA CIGNA OPEN ACCESS Care Teams Brake Operator Heavy Duty Relationship Specialty Start Date End Date Jovan Gomez MD [address] [facility] [address] [place] [address] PCP - General Internal Medicine 11/11/18 [place] [address] [place] [address] Physical Therapist Physical Therapy 07/12/21
--- OUTSIDE RECORDS SUMMARY | 2024-11-15 18:01 | XMS_ITS | Clinical Summary ---
Author Organization [facility] Address [address] [place] [address] Care Team Providers Care Document Management Analyst Name Role Phone Unavailable Primary Care Provider Unavailabl e Source Comments [facility],non-owned Affiliates and Associated Physician Practices is amultiple site organization consisting of ambulatory clinics and hospital sitesin [place], [place], [place] and [place]. This disclosure is being madepursuant to the Care Everywhere program and may not contain all information available regarding this patient. Last updated 18.[facility] Social History Tobacco Use Types Packs/Day Years Used Date Smoking Tobacco: Never Assessed Comments Unknown Sex and Gender Information Value Date Recorded Sex Assigned at Not on file Legal Sex Female 4:48 PM CDT Gender Identity Not on file Sexual Orientation Not on file Plan of Treatment Health Maintenance Due Date Last Done Comments HIV SCREENING 2009 HEPATITIS C SCREENING 03/01/2012 DTAP/TDAP/TD VACCINES (1 - Tdap) 2013 HEPATITIS B VACCINE (1 of 3 - 19+ 3-dose series) 2013 COVID-19 VACCINE (1 - 2023-2 5 season) 2024 DEPRESSION SCREENING 06/30/2024 INFLUENZA VACCINE (Season Ended) 2025 ZOSTER VACCINE (1 of 2) 2044 HIB VACCINE Aged Out No longer eligi ble based on patient's age to complete this topic HPV VACCINE Aged Out No longer eligi ble based on patient's age to complete this topic MENINGOCOCCAL (Group B) VACC INE SHARED DECISION-MAKING Aged Out No longer eligibl e based on patient's age to complete this topic MENINGOCOCCAL GROUPS A/C/Y/W VACCINE Aged Out No longer eligible b ased on patient's age to complete this topic PNEUMOCOCCAL VACCINE Aged Out No long er eligible based on patient's age to complete this topic Insurance CIGNA
--- OUTSIDE RECORDS SUMMARY | 2024-11-15 18:01 | XMS_ITS | Clinical Summary ---
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 Gender Identity Not on file Sexual Orientation Not on file Plan of Treatment Health Maintenance Due Date Last Done Comments Hepatitis C Virus (HCV) Screening 1994 TdaP Immunization 1994 Hepatitis B Immunization (1 of 3 - 19+ 3-dose series) 2013 Pap Smear 2015 Influenza Immunization (#1) 2024 SARS-COV-2 Immunization ( season) 2024 Cervical Cancer Screening (CCS) 2024 HPV/Cotest 2024 Respiratory Syncytial Virus (RSV) Immunization (Adult) (1 - 1-dose 75+ series) 2069 Meningococcal Immunization (ACWY) Aged Out No longer eligible based on patient's age to complete this topic Pneumococcal Immunization Combined Aged Out No longer eligible based on patient's age to complete this topic Rotavirus Immunization Aged Out No lo nger eligible based on patient's age to complete this topic Insurance [employer] on file
--- OUTSIDE RECORDS SUMMARY | 2024-11-15 18:01 | XMS_ITS | Encounter Summary ---
Author Organization [facility] Address [address] [place] [address] Care Team Providers Care Independent Agent Music Education Name Role Phone Unavailable Primary Care Provider Unavailabl e Encounter Details Date Type Department Care Team (Late st Contact Info) Description 12/20/2019 Lab Requisition [facility] [address] [place] [address] Bill Boswell MD [address] [place] [address] Social History Tobacco Use Types Packs/Day Years Used Date Smoking Tobacco: Never Assessed Comments Unknown Sex and Gender Information Value Date Recorded Sex Assigned at Not on file Legal Sex Female 4:48 PM CDT Gender Identity Not on file Sexual Orientation Not on file documented as of this encounter Plan of Treatment Not on file documented as of this encounter Procedures Procedure Name Priority Date/Time Associated Diagnosis Comments DERMATOPATHOLOGY Routine 12/16/2019 12:0 0 AM CDT documented in this encounter Results * DERMATOPATHOLOGY (12/16/2019 12:00 AM CDT) Case Report Dermatopathology Report Case: [id number] Authorizing Provider: Bill Boswell MD Collected: 12/16/2019 12:00 AM Ordering Location: [facility] Received: 12/20/2019 07:06 AM Pathologist: Sujey Caretr MD Specimen: Skin, left mons 0 6:21 PM CDT DERMATOPATHOLOGY LABORATORY Final Diagnosis Specimen A. SKIN, left mons: EPIDERMOID CYST WITH EVIDENCE OF RUPTURE (L72.0) NOT PRESENT AT SAMPLED MARGIN 0 6:21 PM CDT DERMATOPATHOLOGY LABORATORY at 1821 CDT Clinical History Inflammed cyst. Check margins. Path # [id number]. 0 6:21 PM CDT DERMATOPATHOLOGY LABORATORY Gross Description Specimen A: Received is one formalin filled container labeled with the patient's name and designated left mons. The specimen consists of a [id number] excision, bisected. The margin is inked green. Jar 0. 0 6:21 PM CDT DERMATOPATHOLOGY LABORATORY Microscopic Description Specimen A. SKIN, left mons: Within the dermis, there is a space lined by epithelium that resembles normal epidermis and the infundibular portion of the hair follicle. Surrounding this is an infiltrate with neutrophils, histiocytes, and multinucleated giant cells. This lesion is not present at the sampled margin of the specimen. 0 6:21 PM CDT DERMATOPATHOLOGY LABORATORY Disclaimer An external and internal positive and negative controls are appropriate for the histochemical, immunohistochemical and immunofluorescence stain(s) in this case (if any), except where stated explicitly. The performance characteristics of the stain(s) cited in this report were developed and its performance characteristic determined by the Dermatopathology Laboratory at [facility], directed by Dr. Vivian Del Castillo. These tests need not be, and therefore are not, approved by the [place] Food and Drug Administration. The tests are used for clinical purposes. Billing Codes Specimen Charges Stain Charges 95964 1 0 6:21 PM CDT DERMATOPATHOLOGY LABORATORY Embedded Images 0 6:21 PM CDT DERMATOPATHOLOGY LABORATORY Pathology/Cytolog y TISSUE SPECIMEN FROM SKIN / Unknown 12/16/2019 12/20/2019 7:06 AM CDT us Bill Boswell MD LAB - PATHOLOGY/CYTOLOGY ORDER VALERIA Final Result DERMATOPATHOLOGY LABORATORY [facility] - Department of Dermatology Fabricator Artificial Breast [place] [address], [facility] [phone] documented in this encounter Visit Diagnoses Not on filedocumented in this encounter
--- OUTSIDE RECORDS SUMMARY | 2024-11-15 18:01 | XMS_ITS | Clinical Summary ---
Author Organization [facility] Address [facility] [place] [address] Care Team Providers Care Device Engineer Name Role Phone Kelly Rodriguez MD Primary Care Provider + Allergies Active Allergy Reactions Criticality Noted Date Comments Lamotrigine Rash Medium 04/04/2022 Pineapple Anaphylaxis High 04/04/2022 Medications progesterone (PROMETRIUM) 200 MG capsule TAKE 1 CAPSULE BY MOUTH AT BEDTIME ON PEAK PLUS DAYS 3 THROUGH 12 Active HYDROcodone-acetam inophen (NORCO) 5-325 MG tablet Take 1 tablet by mouth 2 (two) times daily as needed. 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 Assessment & Plan (10/05/2024 2:03 PM CDT): Suspect connective tissue disorder underlying. Orthostatic hypotension 10/05/2024 Overview (10/05/2024): Reports that she has been noticing occasionally she has dizziness when standing. She has been tracking her pulse as she has an Apple Watch but her pulse seems to stay relatively stable. Symptoms resolve if she sits down. No palpitations. Assessment & Plan (10/05/2024 2:36 PM CDT): EDS might raise risk for POTS however she does not have associated tachycardia. Symptoms seem more consistent with orthostatic hypotension. Recommend compression stockings and somewhat increased salt intake to see if this manages symptoms. She will track her blood pressure and pulse at home a little more closely. KASH (generalized anxiety disorder) 07/24/2023 Overview (10/05/2024): Bullied as a child. Worsened post . In the past has been on medication. Typically has caused fatigue. 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 Medications resistant. Even tried ketamine. Poor counseling experiences in the past. Assessment & Plan (10/05/2024 3:45 PM CDT): Recommend cognitive behavioral therapy. Prefers to avoid medication which is reasonable. History of anemia 05/10/2020 Acquired hypothyroidism 05/10/2020 Assessment & Plan (10/05/2024 2:03 PM CDT): Takes levothyroxine. Last TSH was normal. Interested in seeing if T4 is normal and whether there is room to adjust while keeping TSH in normal range since she is still experiencing symptoms of low thyroid. Femoroacetabular impingement of left hip 020 Overview (10/05/2024): Surgery x 4. 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 [place] [address] Melia Bautista MD Weedon, Meaghan B, PT Rib Pain 08/25/2024 Travel from Last 3 Months Family History Medical History Relation Comments No Known Problems Brother Prostate Cancer Father No Known Problems Mother No Known Problems Sister No Known Problems Son 1 No Known Problems Son 2 Relation Status Comments Brother Alive Father Alive Mother Alive Sister Alive Son 1 Alive Son 2 Alive Social History Tobacco Use Types Packs/Day Years Used Date Smoking Tobacco: Never Passive Smoke Exposure: Never Smokeless Tobacco: Never Tobacco Cessation:Counseling Given: No Alcohol Use Standard Drinks/Week Comments Never 0 (1 standard drink = 0.6 oz pur e alcohol) PHQ-2 Answer Date Recorded Patient Health Questionnaire-2 Score 0 10/05/2024 Comments No Sex and Gender Information Value Date Recorded Sex Assigned at Female 07/13/2024 8:50 AM DOWEL SETTING MACHINE OPERATOR Legal Sex Female 6:16 PM CDT Gender Identity Not on file Sexual Orientation Not on file Last Filed Vital Signs Vital Sign Reading Time Taken Comments Blood Pressure 102/67 10/05/2024 1:01 PM CDT Pulse 84 10/05/2024 1:01 PM CDT Temperature 37.1 C (98.7 F) 10/05/2024 1:01 PM CDT Respiratory Rate 18 04/08/2023 11:16 PM CDT Oxygen Saturation 98% 10/05/2024 1:01 PM CDT Inhaled Oxygen Concentration - - Weight 73.6 kg (162 lb 3.2 oz) 10/05/2024 1:01 P M CDT Height 171.5 cm (5' 7.5 ) 10/05/2024 1:01 PM CDT Body Mass Index 25.03 10/05/2024 1:01 PM CDT Plan of Treatment Upcoming Encounters Date Type Department Care Team (Late st Contact Info) Description 10/10/2025 2:00 PM CDT Office Visit [facility] - [place] [address] [place] [address] Kelly Rodriguez MD [address] [place] [address] Health Maintenance Due Date Last Done Comments DTaP, Tdap and Td Vaccines ( 1 - Tdap) 2013 Hepatitis B Vaccines (1 of 3 - 19+ 3-dose series) 2013 COVID-19 Vaccine ( - 2023-2 5 season) 2024 Cervical Cancer Screening Pa p with HPV Testing (Age 30 to 64) Every 5 Years 2024 Cervical Cancer Screening Pa p Smear (Age 30 to 64) Every 3 Years 01/07/2025 01/07/2022, 01/07/2022 Cervical Cancer Screening wi th HPV 01/07/2025 Annual Physical 10/05/2025 10/05/2024 Hepatitis C Completed 05/14/2022 PHQ-2 (Physician Resighini) Completed 10/05/2024 HPV Vaccines Aged Out No longer eligi ble based on patient's age to complete this topic Meningococcal B Vaccine Aged Out No l onger eligible based on patient's age to complete this topic Meningococcal Vaccine Aged Out No gita humberto eligible based on patient's age to complete this topic Pneumococcal Vaccine: Pediatrics (0 to 5 Years) and At-Risk Patients (6 to 49 Years) Aged Out No longer eligible b ased on patient's age to complete this topic RSV Immunizations Under 20 Months Aged Out No longer eligible b ased on patient's age to complete this topic Procedures Procedure Name Priority Date/Time Associated Diagnosis Comments VITAMIN D, 25 OH TOTAL Routine 10/06/2024 6:51 AM CDT BASIC METABOLIC PANEL Routine 10/06/2024 6:51 AM CDT CBC W/DIFF AUTOMATED Routine 10/06/2024 6:51 AM CDT Routine general medical examination at a health care facility LIPID PANEL Today 10/06/2024 6:51 AM CDT Routine general medical examination at a health care facility THYROXINE, FREE (FT4) Routine 10/06/2024 6:51 AM CDT Acquired hypothyroidism THYROID STIM HORMONE TSH Today 10/06/2024 6:51 AM CDT Acquired hypothyroidism HEMOGLOBIN, GLYCOSYLATED Today 10/06/2024 6:51 AM CDT Routine general medical examination at a health care facility HEPATITIS C ANTIBODY Routine 05/14/2022 OUTSIDE CYTOPATH CERV/VAG INTERPRET (PAP) (SCAN ORDER) Routine 01/07/2022 from Last 3 Months or Most Recently Relevant to Health Maintenance Results * VITAMIN D, 25 OH TOTAL (10/06/2024 6:51 AM CDT) VITAMIN D 25 HYDROXY TOTAL S/P/B 48.3 >29.9 ng/mL [facility] Comment: This test was developed and its analytical performance characteristics have been determined by [facility]. It has not been cleared or approved by the U.S. Food and Drug Administration. This assay has been validated pursuant to the CLIA regulations and is used for clinical purposes. Vitamin D, 25-Hydroxy reports concentrations of two common forms, 25-OHD2 and 25-OHD3. 25-OHD3 indicates both endogenous production and supplementation. 25-OHD2 is an indicator of exogenous sources, such as diet or supplementation. Therapy is based on measurement of Total 25-OHD, with levels <20 ng/mL indicative of Vitamin D deficiency, while levels between 20 ng/mL and 30 ng/mL suggest insufficiency. Optimal levels are >=30 ng/mL. Vitamin D, 25-Hydroxy reports concentrations of two common forms, 25-OHD2 and 25-OHD3. 25-OHD3 indicates both endogenous production and supplementation. 25-OHD2 is an indicator of exogenous sources, such as diet or supplementation. Therapy is based on measurement of Total 25-OHD, with levels <20 ng/mL indicative of Vitamin D deficiency, while levels between 20 ng/mL and 30 ng/mL suggest insufficiency. Optimal levels are > or = 30 ng/mL. VITAMIN D 25 HYDROXY D3 S/P/B 45.2 ng/mL [facility] Comment: This test was developed and its analytical performance characteristics have been determined by [facility]. It has not been cleared or approved by the FDA. This assay has been validated pursuant to the CLIA regulations and is used for clinical purposes. VITAMIN D 25 HYDROXY D2 S/P/B 3.1 ng/mL [facility] Comment: This test was developed and its analytical performance characteristics have been determined by [facility]. It has not been cleared or approved by the FDA. This assay has been validated pursuant to the CLIA regulations and is used for clinical purposes. 10/06/2024 6:51 AM CDT 10/06/2024 6:51 AM CDT Narrative [facility] - 10/12/2024 10:26 PM CDT FASTING:YES FASTING: YES Resulting Agency Comment Performing Organization Information: Site ID: [id number] Name: [facility] Address: [address] [place] [id number] Director: Shayan Castro us Kelly Rodriguez MD LABORATORY Final Re sult [facility] [place] [address], * HEMOGLOBIN, GLYCOSYLATED (10/06/2024 6:51 AM CDT) HGB A1C 5.1 <5.7 % of total Hgb [facility] [place] Comment: For the purpose of screening for the presence of diabetes: <5.7% Consistent with the absence of diabetes 5.7-6.4% Consistent with increased risk for diabetes (prediabetes) > or =6.5% Consistent with diabetes This assay result is consistent with a decreased risk of diabetes. Currently, no consensus exists regarding use of hemoglobin A1c for diagnosis of diabetes in children. According to [place] Diabetes Association (ADA) guidelines, hemoglobin A1c <7.0% represents optimal control in non- diabetic patients. Different metrics may apply to specific patient populations. Standards of Medical Care in Diabetes(ADA). 10/06/2024 6:51 AM CDT 10/06/2024 6:51 AM CDT Narrative [facility] [place] [facility] - 10/12/2024 10:26 PM CDT FASTING:YES FASTING: YES Resulting Agency Comment Performing Organization Information: Site ID: [place] Name: [facility] Address: [address] [place] [address] Director: Joseph Fay us Kelly Rodriguez MD LABORATORY Final Re sult [facility] DIAGNOSTIC[place]ILLI[place], [place] [address] [place] [address], [place] * BASIC METABOLIC PANEL (10/06/2024 6:51 AM CDT) GLUCOSE 93 65 - 99 mg/dL [facility] Comment: Fasting reference interval BUN 14 7 - 25 mg/dL [facility] CREATININE S/P/B 0.82 0.50 - 0.97 mg/dL [facility] [employer] [facility] GFR ESTIMATE 99 > OR = 60 mL/min/1. 73m2 [facility] BUN CREATININE RATIO SEE NOTE: (calc) [facility] Comment: Not Reported: BUN and Creatinine are within reference range. SODIUM S/P/B 139 135 - 146 mmol/L [facility] POTASSIUM S/P/B 4.0 3.5 - 5.3 mmol/L [facility] CHLORIDE S/P/B 104 98 - 110 mmol/L [facility] CO2 26 20 - 32 mmol/L [facility] CALCIUM S/P/B 9.5 8.6 - 10.2 mg/dL [facility] 10/06/2024 6:51 AM CDT 10/06/2024 6:51 AM CDT Narrative [facility] - 10/12/2024 10:26 PM CDT FASTING:YES FASTING: YES Resulting Agency Comment Performing Organization Information: Site ID: [place] Name: [facility] Address: [address] [place] [address] Director: Joseph Fay MD us Kelly Rodriguez MD LABORATORY Final Re sult [facility] - [facility] [address] [place] [address], [place] * LIPID PANEL (10/06/2024 6:51 AM CDT) CHOLESTEROL 159 <200 mg/dL [facility] HDL 52 > OR = 50 mg/dL [facility] TRIGLYCERIDES 96 <150 mg/dL [facility] LDL (CALCULATED) 88 mg/dL (calc) [facility] Comment: Reference range: <100 Desirable range <100 mg/dL for primary prevention; <70 mg/dL for patients with CHD or diabetic patients with > or = 2 CHD risk factors. LDL-C is now calculated using the Evon calculation, which is a validated novel method providing better accuracy than the Friedewald equation in the estimation of LDL-C. Sha SS et al. CAM. 2013;310(19): 5194-2856 (http://education.Proxible/faq/LMN723) CHOL/HDL RATIO 3.1 <5.0 (calc) [facility] NON HDL CHOLESTEROL 107 <130 mg/dL (calc) [facility] Comment: For patients with diabetes plus 1 major ASCVD risk factor, treating to a non-HDL-C goal of <100 mg/dL (LDL-C of <70 mg/dL) is considered a therapeutic option. 10/06/2024 6:51 AM CDT 10/06/2024 6:51 AM CDT Narrative [facility] BRIE HSU - 10/12/2024 10:26 PM CDT FASTING:YES FASTING: YES Resulting Agency Comment Performing Organization Information: Site ID: [place] Name: [facility] Address: [address] [place] [address] Director: Joseph Fay MD Kelly Rodriguez MD LABORATORY Final Re sult NANI HSU [facility] [address] [place] [address], [place] * CBC W/DIFF AUTOMATED (10/06/2024 6:51 AM CDT) WBC 5.7 3.8 - 10.8 Thousand/u L [facility] RBC 4.59 3.80 - 5.10 Million/uL [facility] HGB 13.7 11.7 - 15.5 g/dL [facility] HCT 41.5 35.0 - 45.0 % [facility] MCV 90.4 80.0 - 100.0 fL [facility] MCH 29.8 27.0 - 33.0 pg [facility] MCHC 33.0 32.0 - 36.0 g/dL [facility] Comment: For adults, a slight decrease in the calculated MCHC value (in the range of 30 to 32 g/dL) is most likely not clinically significant; however, it should be interpreted with caution in correlation with other red cell parameters and the patient's clinical condition. RDW 12.4 11.0 - 15.0 % [facility] PLT 170 140 - 400 Thousand/u L [facility] MPV 10.6 7.5 - 12.5 fL [facility] ABS. NEUTROPHILS 2,713 1,500 - 7,800 cells/uL [facility] ABS. LYMPHOCYTES 2,388 850 - 3,900 cells/uL [facility] ABS. MONOCYTES 502 200 - 950 cells/uL [facility] ABS. EOSINOPHILS 68 15 - 500 cells/uL [facility] ABS. BASOPHILS 29 0 - 200 cells/uL [facility] SEG NEUTROPHILS 47.6 % [facility] LYMPHOCYTES 41.9 % [facility] MONOCYTES 8.8 % [facility] EOSINOPHILS 1.2 % [facility] BASOPHILS 0.5 % [facility] 10/06/2024 6:51 AM CDT 10/06/2024 6:51 AM CDT Narrative [facility] Ar[facility] - 10/12/2024 10:26 PM CDT FASTING:YES FASTING: YES Resulting Agency Comment Performing Organization Information: Site ID: [place] Name: [facility] Address: [address] [place] [place] [address] Director: Joseph Fay MD us Kelly Rodriguez MD LABORATORY Final Re sult Performing Organization Address [facility]/ZIP Co de Phone Number [facility] [id number] [place] [id number], * THYROXINE, FREE (FT4) (10/06/2024 6:51 AM CDT) FREE T4 1.2 0.8 - 1.8 ng/dL [facility] 10/06/2024 6:51 AM CDT 10/06/2024 6:51 AM CDT Narrative [facility] - 10/12/2024 10:26 PM CDT FASTING:YES FASTING: YES Resulting Agency Comment Performing Organization Information: Site ID: [place] Name: [facility] Address: [address] [place] [phone] Director: Joseph Fay MD us Kelly Rodriguez MD LABORATORY Final Re sult Performing Organization Address [facility] Co de Phone Number [facility] [address] [address], * THYROID STIM HORMONE TSH (10/06/2024 6:51 AM CDT) TSH 0.97 mIU/L [facility] Comment: Reference Range > or = 20 Years 0.40-4.50 Ranges First trimester 0.26-2.66 Second trimester 0.55-2.73 Third trimester 0.43-2.91 10/06/2024 6:51 AM CDT 10/06/2024 6:51 AM CDT Narrative [facility] - 10/12/2024 10:26 PM CDT FASTING:YES FASTING: YES Resulting Agency Comment Performing Organization Information: Site ID: [place] Name: [facility] Address: [address] [place] [phone] Director: Joseph Fay MD us Kelly Rodriguez MD LABORATORY Final Re sult [facility] [address] [place] [address], [place] * HEPATITIS C ANTIBODY (05/14/2022) 05/14/2022 Narrative Tunde Myranda REINA [place] - 05/14/2022 Non reactive us Default History Genericprovider LABORATORY Final Result * PAP SMEAR (01/07/2022) 01/07/2022 us Doc [facility] Scanned SCANNING Final Resu lt [facility] ONBASE from Last 3 Months or Most Recently Relevant to Health Maintenance Insurance [facility] Advance Directives Documents on File Type Date Recorded 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
--- OUTSIDE RECORDS SUMMARY | 2024-11-15 18:01 | XMS_ITS | Referral Summary ---
Author Organization [facility] Address [address] [address] Care Team Providers Care Manufacturing Lead Name Role Phone Jovan Gomez MD Primary Care Provider [phone] Moira Heck PT Unavailable [phone] Allergies Active Allergy Reactions Criticality Noted [...] 1 tablet (50 mcg total) by mouth venipuncturist before breakfast Active HYDROcodone-torie taminophen (NORCO) 5-325 [...] (11/19/2021): Added automatically from request for surgery [id number] Anxiety 05/10/2020 Depression 05/10/2020 Hypothyroidism 05/10/2020 History of anemia 05/10/2020 Retained orthopedic hardware 04/11/2020 Overview (04/11/2020): Added automatically from request for surgery [id number] Femoroacetabular impingement of left hip 020 Overview (04/11/2020): Added automatically from request for surgery [id number] Abnormal CT of liver 11/11/2018 Arthralgia of hip 07/16/2017 Surgical follow-up care 07/10/2016 Social History Tobacco Use Types Packs/Day Years [...] on file 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 Gender Identity Not on file Sexual Orientation Not on file 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 Not on file Not on file Last Filed Vital Signs [...] 12/18/2021 8:30 AM CDT Plan of Treatment Not on file Medical Devices Implanted Type Area Singing Teacher Device Identifier Shelf Expiration Date Model / Serial / Lot [employer] Suturetak Tigerwire 3mm 14.5mm 2 [place] Suture Fiberwire [id number] - [id number] Implanted:Qty: 1 on 12/18/2021 by Sam Gallo MD at [facility] Left: Shoulder [employer] 07/30/2025 [id number] / / [id number] Description:[employer] SUTU RETAK TIGERWIRE 3MM 14.5MM 2 ANCHOR SUTURE FIBERWIRE [id number] - [id number] [employer] Suturetak Fiberwire Arthrex 3mm 12.7mm Knotless Cruciate Ligament [id number] - [id number] Implanted:Qty: 1 on 12/18/2021 by Sam Gallo MD at [facility] [place] Left: Shoulder [employer] 07/30/2023 [id number] / / [id number] Description:[employer] SUTU RETAK FIBERWIRE ARTHREX 3MM 12.7MM KNOTLESS CRUCIATE LIGAMENT [id number] - [id number] [employer] Suturetak Fiberwire Arthrex 3mm 12.7mm Knotless Cruciate Ligament [id number] - [id number] Implanted:Qty: 1 on 12/18/2021 by Sam Gallo MD at [facility] Left: Shoulder [employer] 07/30/2023 [id number]-[id number] / / [id number] Description:[employer] SUTU RETAK FIBERWIRE ARTHREX 3MM 12.7MM KNOTLESS CRUCIATE LIGAMENT [id number] - [id number] Explanted Type Area Singing Teacher Device Identifier Shelf Expiration Date Model / Serial / Lot Screw Explanted:Qty: 4 on 05/10/2020 by Roberto Perez MD at [facility] Screw Left: Hip Description:Previous TAYLOR scr ews removed. Insurance [employer] ACCESS CHOICE [employer] ACCESS CHOICE [employer] OPEN ACCESS Care Teams Manufacturing Lead Relationship Specialty Start Date End Date Jovan Gomez MD [address] [facility] [address] [place], [place] [id number] PCP - General Internal Medicine 11/11/18 [place] [address] [place] [address] Physical Therapist Physical Therapy 07/12/21
[2024-11-15 18:49] VITALS: BP 113/66; PULSE 90; RESP 18; TEMP 35.9; O2SAT 99
[2024-11-15] MEDS: oxyCODONE HCL (*CRX) 5 MG TAB IR PO (20:27)
--- OUTSIDE RECORDS SUMMARY | 2024-11-15 20:31 | XMS_ITS | Clinical Summary ---
Author Organization [facility] Address [address] [place] [phone] Care Team Providers Care Retail Operations Specialist Name Role Phone Unavailable Primary Care Provider Unavailabl e Social History Tobacco Use Types Packs/Day Years Used Date Smoking Tobacco: Never Assessed Comments Unknown Sex and Gender Information Value Date Recorded Sex Assigned at Not on file Legal Sex Female 10:17 AM POOL HAND Gender Identity Not on file Sexual Orientation [...]
--- OUTSIDE RECORDS SUMMARY | 2024-11-15 20:31 | XMS_ITS | Clinical Summary ---
Author Organization [facility] Address [facility] [place] [address] Care Team Providers Care Residential Concierge Name Role Phone Kelly Rodriguez MD Primary [...] Department Care Team Description 10/14/2024 Results Follow-Up [facility] [address] [place] [address] Kelly Rodriguez MD HEMOGLOBIN, GLYCOSYLATED, THYROID STIM HORMONE TSH, THYROXINE, FREE (FT4), Additional followed-up results: 4 10/05/2024 1:00 PM CDT Office Visit [facility] [address] [place] [address] Kelly Rodriguez MD New Patient (Here to get established and discuss hypothyroidism) 10/05/2024 Travel 08/25/2024 11:15 AM ENTRY LEVEL SOFTWARE ENGINEER Office Visit [facility] Physical Therapy [address] [place] [address] Melia Bautista MD Weedon, Meaghan B, PT [...] Sex Assigned at Female 07/13/2024 8:50 AM ENTRY LEVEL SOFTWARE ENGINEER Legal Sex Female 6:16 PM CDT Gender [...] Description 10/10/2025 2:00 PM CDT Office Visit [facility] Family Medicine - [place] [address] [place] [address] Kelly Rodriguez MD [address] [place] [address] Health Maintenance Due Date Last Done Comments [...] 10/05/2024 Hepatitis C Completed 05/14/2022 PHQ-2 (Physician Agdaagux) Completed 10/05/2024 HPV Vaccines Aged Out No [...] 25 HYDROXY TOTAL S/P/B 48.3 >29.9 ng/mL [facility] Comment: This test was developed and its analytical performance characteristics have been determined by [facility]. It has not been cleared or approved [...] D 25 HYDROXY D3 S/P/B 45.2 ng/mL [facility] Comment: This test was developed and its analytical performance characteristics have been determined by [facility]. It has not been cleared or approved by the FDA. This assay has been validated pursuant to the CLIA regulations and is used for clinical purposes. VITAMIN D 25 HYDROXY D2 S/P/B 3.1 ng/mL [facility] Comment: This test was developed and its analytical performance characteristics have been determined by [facility]. It has not been cleared or approved by the FDA. This assay has been validated pursuant to the CLIA regulations and is used for clinical purposes. 10/06/2024 6:51 AM CDT 10/06/2024 6:51 AM CDT Narrative [facility] [place] [facility] - 10/12/2024 10:26 PM CDT FASTING:YES FASTING: YES Resulting Agency Comment Performing Organization Information: Site ID: [id number] Name: [facility] Address: [address] [place] [id number] Director: Shayan Castro us Kelly Rodriguez MD LABORATORY Final Re sult [facility] - [place] [address], * HEMOGLOBIN, GLYCOSYLATED (10/06/2024 6:51 AM CDT) HGB A1C 5.1 <5.7 % of total Hgb [facility], [place] Comment: For the purpose of screening for the presence of diabetes: <5.7% Consistent with the absence of diabetes 5.7-6.4% Consistent with increased risk for diabetes (prediabetes) > or =6.5% Consistent with diabetes This assay result is consistent with a decreased risk of diabetes. Currently, no consensus exists regarding use of hemoglobin A1c for diagnosis of diabetes in children. According to [place] Diabetes Association (ADA) guidelines, hemoglobin A1c <7.0% represents optimal control in non- diabetic patients. Different metrics may apply to specific patient populations. Standards of Medical Care in Diabetes(ADA). 10/06/2024 6:51 AM CDT 10/06/2024 6:51 AM CDT Narrative [facility] [place] [facility] - 10/12/2024 10:26 PM CDT FASTING:YES FASTING: YES Resulting Agency Comment Performing Organization Information: Site ID: [id number] Name: [facility] Address: [address] [place] [address] Director: Joseph Fay us Kelly Rodriguez MD LABORATORY Final Re sult [facility] [place] [facility], [place] [address] [place] [address], [place] * BASIC METABOLIC PANEL (10/06/2024 6:51 AM CDT) GLUCOSE 93 65 - 99 mg/dL [facility] Comment: Fasting reference interval BUN 14 7 - 25 mg/dL [facility] CREATININE S/P/B 0.82 0.50 - 0.97 mg/dL [facility] [employer] [facility] GFR ESTIMATE 99 > OR = 60 mL/min/1. 73m2 [facility] BUN CREATININE RATIO SEE NOTE: (calc) [facility] Comment: Not Reported: BUN and Creatinine are within reference range. SODIUM S/P/B 139 135 - 146 mmol/L [facility] POTASSIUM S/P/B 4.0 3.5 - 5.3 mmol/L [facility] CHLORIDE S/P/B 104 98 - 110 mmol/L [facility] CO2 26 20 - 32 mmol/L [facility] CALCIUM S/P/B 9.5 8.6 - 10.2 mg/dL [facility] 10/06/2024 6:51 AM CDT 10/06/2024 6:51 AM CDT Narrative [facility] [place] [facility] - 10/12/2024 10:26 PM CDT FASTING:YES FASTING: YES Resulting Agency Comment Performing Organization Information: Site ID: [place] Name: [facility] Address: [address] [address] Director: Joseph Fay MD us Kelly Rodriguez MD LABORATORY Final Re sult [facility] - [place] [facility] [address] [place] [address], [place] * LIPID PANEL (10/06/2024 6:51 AM CDT) CHOLESTEROL 159 <200 mg/dL [facility] HDL 52 > OR = 50 mg/dL [facility] TRIGLYCERIDES 96 <150 mg/dL [facility] LDL (CALCULATED) 88 mg/dL (calc) [facility] Comment: Reference range: <100 Desirable range <100 mg/dL for primary prevention; <70 mg/dL for patients with CHD or diabetic patients with > or = 2 CHD risk factors. LDL-C is now calculated using the Evon calculation, which is a validated novel method providing better accuracy than the Friedewald equation in the estimation of LDL-C. Sha SS et al. CAM. 2013;310(19): 1965-1327 (http://education.Volvant/faq/PTS849) CHOL/HDL RATIO 3.1 <5.0 (calc) [facility] NON HDL CHOLESTEROL 107 <130 mg/dL (calc) [facility] Comment: For patients with diabetes plus 1 major ASCVD risk factor, treating to a non-HDL-C goal of <100 mg/dL (LDL-C of <70 mg/dL) is considered a therapeutic option. 10/06/2024 6:51 AM CDT 10/06/2024 6:51 AM CDT Narrative [facility]E HSU - 10/12/2024 10:26 PM CDT FASTING:YES FASTING: YES Resulting Agency Comment Performing Organization Information: Site ID: [place] Name: [facility] Address: [address] [place] [address] Director: Joseph Fay MD Kelly Rodriguez MD LABORATORY Final Re sult NANI HSU [facility] [address] [place] [address], [place] * CBC W/DIFF AUTOMATED (10/06/2024 6:51 AM CDT) WBC 5.7 3.8 - 10.8 Thousand/u L [facility] RBC 4.59 3.80 - 5.10 Million/uL [facility] HGB 13.7 11.7 - 15.5 g/dL [facility] HCT 41.5 35.0 - 45.0 % [facility] MCV 90.4 80.0 - 100.0 fL [facility] MCH 29.8 27.0 - 33.0 pg [facility] MCHC 33.0 32.0 - 36.0 g/dL [facility] Comment: For adults, a slight decrease in the calculated MCHC value (in the range of 30 to 32 g/dL) is most likely not clinically significant; however, it should be interpreted with caution in correlation with other red cell parameters and the patient's clinical condition. RDW 12.4 11.0 - 15.0 % [facility] PLT 170 140 - 400 Thousand/u L [facility] MPV 10.6 7.5 - 12.5 fL [facility] ABS. NEUTROPHILS 2,713 1,500 - 7,800 cells/uL [facility] ABS. LYMPHOCYTES 2,388 850 - 3,900 cells/uL [facility] ABS. MONOCYTES 502 200 - 950 cells/uL [facility] ABS. EOSINOPHILS 68 15 - 500 cells/uL [facility] ABS. BASOPHILS 29 0 - 200 cells/uL [facility] SEG NEUTROPHILS 47.6 % [facility] LYMPHOCYTES 41.9 % [facility] MONOCYTES 8.8 % [facility] EOSINOPHILS 1.2 % [facility] BASOPHILS 0.5 % [facility] 10/06/2024 6:51 AM CDT 10/06/2024 6:51 AM CDT Narrative [facility] Arjun KNOX ORDERS - 10/12/2024 10:26 PM CDT FASTING:YES FASTING: YES Resulting Agency Comment Performing Organization Information: Site ID: [place] Name: [facility] Address: [address] [address] Director: Joseph Fay MD us Kelly Rodriguez MD LABORATORY Final Re sult Performing Organization Address [facility]/ZIP Co de Phone Number [facility] [place] [id number] [place] [address], * THYROXINE, FREE (FT4) (10/06/2024 6:51 AM CDT) FREE T4 1.2 0.8 - 1.8 ng/dL [facility] 10/06/2024 6:51 AM CDT 10/06/2024 6:51 AM CDT Narrative [facility] [place] [facility] - 10/12/2024 10:26 PM CDT FASTING:YES FASTING: YES Resulting Agency Comment Performing Organization Information: Site ID: [place] Name: [facility] Address: [address] [place] [address] Director: Joseph Fya MD us Kelly Rodriguez MD LABORATORY Final Re sult Performing Organization Address [facility] Co de Phone Number [facility] [address] [address], * THYROID STIM HORMONE TSH (10/06/2024 6:51 AM CDT) TSH 0.97 mIU/L [facility] Comment: Reference Range > or = 20 Years 0.40-4.50 Ranges First trimester 0.26-2.66 Second trimester 0.55-2.73 Third trimester 0.43-2.91 10/06/2024 6:51 AM CDT 10/06/2024 6:51 AM CDT Narrative [facility] [place] [facility] - 10/12/2024 10:26 PM CDT FASTING:YES FASTING: YES Resulting Agency Comment Performing Organization Information: Site ID: [place] Name: [facility] Address: [address] [place] [address] Director: Joseph Fay MD us Kelly Rodriguez MD LABORATORY Final Re sult [facility] [address] [place] [address], [place] * HEPATITIS C ANTIBODY (05/14/2022) 05/14/2022 Narrative [facility] Myranda REINA [place] - 05/14/2022 Non reactive us Default History Genericprovider LABORATORY Final Result * PAP SMEAR (01/07/2022) 01/07/2022 us Doc Med Group Scanned SCANNING Final Resu lt [facility] ONBASE from Last 3 Months or Most Recently Relevant to Health Maintenance Insurance [facility] Advance Directives Documents on File Type Date Recorded Patient Ornamenter Expl anation Advance Directives and Living Will 10/10/2016 12:00 AM ADVANCED DIRECTIVES Care Teams Residential Concierge Relationship Specialty Start Date End Date Kelly Rodriguez MD [address] [place] [id number] PCP - General FAMILY PRACTICE 10/05/24
--- OUTSIDE RECORDS SUMMARY | 2024-11-15 20:31 | XMS_ITS | Clinical Summary ---
Author Organization [facility] Address [address] [place] [address] Care Team Providers Care Bottle Feeder Name Role Phone Unavailable Primary Care Provider Unavailabl e Source Comments [facility],non-owned Affiliates and Associated Physician Practices is amultiple site organization consisting of ambulatory clinics and hospital sitesin [place] and [place]. This disclosure is being madepursuant to the Care Everywhere program and may not contain all information available regarding this patient. Last updated 18.[facility] Social History Tobacco Use Types Packs/Day Years [...]
--- OUTSIDE RECORDS SUMMARY | 2024-11-15 20:31 | XMS_ITS | Clinical Summary ---
Author Organization [facility] Address [address] [address] Care Team Providers Care Inside Contractor Sales Name Role Phone Jovan Gomez MD Primary Care Provider [phone] Moira Heck PT Unavailable [phone] Allergies Active Allergy Reactions Criticality Noted [...] 1 tablet (50 mcg total) by mouth air valve mechanic before breakfast Active HYDROcodone-torie taminophen (NORCO) 5-325 [...] (11/19/2021): Added automatically from request for surgery [id number] Anxiety 05/10/2020 Depression 05/10/2020 Hypothyroidism 05/10/2020 History of anemia 05/10/2020 Retained orthopedic hardware 04/11/2020 Overview (04/11/2020): Added automatically from request for surgery [id number] Femoroacetabular impingement of left hip 020 Overview (04/11/2020): Added automatically from request for surgery [id number] Abnormal CT of liver 11/11/2018 Arthralgia of [...] on file 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 Gender Identity Not on file Sexual Orientation [...] this topic Medical Devices Implanted Type Area School Secretary Device Identifier Shelf Expiration Date Model / Serial / Lot [employer] Suturetak Tigerwire 3mm 14.5mm 2 [place] Suture Fiberwire [id number] - [id number] Implanted:Qty: 1 on 12/18/2021 by Sam Gallo MD at [facility] Left: Shoulder [employer] 07/30/2025 AR-1934BCF -2 / / [id number] Description:[employer] SUTU RETAK TIGERWIRE 3MM 14.5MM 2 [place] SUTURE FIBERWIRE [id number] - [id number] [employer] Suturetak Fiberwire Arthrex 3mm 12.7mm Knotless Cruciate Ligament [id number] - [id number] Implanted:Qty: 1 on 12/18/2021 by Sam Gallo MD at [facility] [place] Left: Shoulder [employer] 07/30/2023 AR-1938BC / / [id number] Description:[employer] SUTU RETAK FIBERWIRE ARTHREX 3MM 12.7MM KNOTLESS CRUCIATE LIGAMENT AR-1938BC - [id number] [employer] Suturetak Fiberwire Arthrex 3mm 12.7mm Knotless Cruciate Ligament [id number] - [id number] Implanted:Qty: 1 on 12/18/2021 by Sam Gallo MD at [facility] [place] Left: Shoulder [employer] 07/30/2023 AR-1938BC / / [id number] Description:[employer] SUTU RETAK FIBERWIRE ARTHREX 3MM 12.7MM KNOTLESS CRUCIATE LIGAMENT AR-1938BC - [id number] Explanted Type Area School Secretary Device Identifier Shelf Expiration Date Model / Serial / Lot Screw Explanted:Qty: 4 on 05/10/2020 by Roberto Perez MD at [facility] Screw Left: Hip Description:Previous TAYLOR scr ews removed. Insurance * Guarantor: Magdalena Mendiola Account Type Relation to Patient Date of Phone Billing Address Personal/Family Self [address] [facility] [place] [address] [employer] ACCESS CHOICE ANTHEM ACCESS CHOICE CIGNA CIGNA OPEN ACCESS Care Teams Inside Contractor Sales Relationship Specialty Start Date End Date Jovan Gomez MD [address] [facility] [address] [place] [address] PCP - General Internal Medicine 11/11/18 [place] [address] [place] [address] Physical Therapist Physical Therapy 07/12/21
--- OUTSIDE RECORDS SUMMARY | 2024-11-15 20:31 | XMS_ITS | Clinical Summary ---
Author Organization [facility] Address [address] [place] [address] Phone Care Team Providers Care Cafeteria Counter Attendant Name Role Phone Unavailable Primary Care Provider [...] Advance Directives For more information, please contact: [phone] * Full Code (Latest Code Status on [...]
--- OUTSIDE RECORDS SUMMARY | 2024-11-15 20:31 | XMS_ITS | Encounter Summary ---
Author Organization [facility] Address [address] [place] [address] Care Team Providers Care Electron Beam Photo Mask Technician Name Role Phone Unavailable Primary Care Provider Unavailabl e Encounter Details Date Type Department Care Team (Late st Contact Info) Description 12/20/2019 Lab Requisition [facility] [address] [place] [address] Bill Boswell MD [address] [place] [address] Social History Tobacco Use Types [...] AM CDT) Case Report Dermatopathology Report Case: [id number] Authorizing Provider: Bill Boswell MD Collected: 12/16/2019 12:00 AM Ordering Location: [facility] Received: 12/20/2019 07:06 AM Pathologist: Sujey Carter MD Specimen: Skin, left mons 0 6:21 PM CDT DERMATOPATHOLOGY LABORATORY Final Diagnosis Specimen A. SKIN, left mons: EPIDERMOID CYST WITH EVIDENCE OF RUPTURE (L72.0) NOT PRESENT AT SAMPLED MARGIN 0 6:21 PM CDT DERMATOPATHOLOGY LABORATORY at 1821 CDT Clinical History Inflammed cyst. Check margins. Path # [id number]. 0 6:21 PM CDT DERMATOPATHOLOGY LABORATORY Gross Description Specimen A: Received is one formalin filled container labeled with the patient's name and designated left mons. The specimen consists of a [id number] excision, bisected. The margin is inked green. [...] characteristic determined by the Dermatopathology Laboratory at [facility], directed by Dr. Vivian Del Castillo. These tests need not be, and therefore are not, approved by the [place] Food and Drug Administration. The tests are used for clinical purposes. Billing Codes Specimen Charges Stain Charges 63031 1 0 6:21 PM CDT DERMATOPATHOLOGY LABORATORY Embedded Images 0 6:21 PM CDT DERMATOPATHOLOGY LABORATORY Pathology/Cytolog y TISSUE SPECIMEN FROM SKIN / Unknown 12/16/2019 12/20/2019 7:06 AM CDT us Bill Boswell MD LAB - PATHOLOGY/CYTOLOGY ORDER VALERIA Final Result DERMATOPATHOLOGY LABORATORY [facility] - Department of Dermatology Conference Services Director [place] [address], [facility] [phone] documented in this encounter Visit Diagnoses Not on filedocumented in this encounter
--- OUTSIDE RECORDS SUMMARY | 2024-11-15 20:31 | XMS_ITS | Referral Summary ---
Author Organization [facility] Address [address] [address] Care Team Providers Care Auto Body Repair Technician Name Role Phone Jovan Gomez MD Primary Care Provider [phone] Moira Heck PT Unavailable [phone] Allergies Active Allergy Reactions Criticality Noted [...] 1 tablet (50 mcg total) by mouth shear helper before breakfast Active HYDROcodone-torie taminophen (NORCO) 5-325 [...] (11/19/2021): Added automatically from request for surgery [id number] Anxiety 05/10/2020 Depression 05/10/2020 Hypothyroidism 05/10/2020 History of anemia 05/10/2020 Retained orthopedic hardware 04/11/2020 Overview (04/11/2020): Added automatically from request for surgery [id number] Femoroacetabular impingement of left hip 020 Overview (04/11/2020): Added automatically from request for surgery [id number] Abnormal CT of liver 11/11/2018 Arthralgia of [...] on file 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 Gender Identity Not on file Sexual Orientation [...] on file Medical Devices Implanted Type Area Supervisor Engine Repair Device Identifier Shelf Expiration Date Model / Serial / Lot [employer] Suturetak Tigerwire 3mm 14.5mm 2 [place] Suture Fiberwire [id number] - [id number] Implanted:Qty: 1 on 12/18/2021 by Sam Gallo MD at [facility] Left: Shoulder [employer] 07/30/2025 AR-1934BCF -2 / / [id number] Description:[employer] SUTU RETAK TIGERWIRE 3MM 14.5MM 2 [place] SUTURE FIBERWIRE [id number] - [id number] [employer] Suturetak Fiberwire Arthrex 3mm 12.7mm Knotless Cruciate Ligament Ar-[id number] - [id number] Implanted:Qty: 1 on 12/18/2021 by Sam Gallo MD at [facility] [place] Left: Shoulder [employer] 07/30/2023 AR-1938BC / / [id number] Description:[employer] SUTU RETAK FIBERWIRE ARTHREX 3MM 12.7MM KNOTLESS CRUCIATE LIGAMENT AR-1938BC - [id number] [employer] Suturetak Fiberwire Arthrex 3mm 12.7mm Knotless Cruciate Ligament Ar-1938bc - [id number] Implanted:Qty: 1 on 12/18/2021 by Sam Gallo MD at [facility] Left: Shoulder [employer] 07/30/2023 AR-1938BC / / [id number] Description:[employer] SUTU RETAK FIBERWIRE ARTHREX 3MM 12.7MM KNOTLESS CRUCIATE LIGAMENT AR-1938BC - [id number] Explanted Type Area Supervisor Engine Repair Device Identifier Shelf Expiration Date Model / Serial / Lot Screw Explanted:Qty: 4 on 05/10/2020 by Roberto Perez MD at [facility] Screw Left: Hip Description:Previous TAYLOR scr ews removed. Insurance [employer] ACCESS CHOICE [employer] ACCESS CHOICE CIGNA Parental Health OPEN ACCESS Care Teams Auto Body Repair Technician Relationship Specialty Start Date End Date Jovan Gomez MD [address] [facility] [address] [place], [place] [id number] PCP - General Internal Medicine 11/11/18 [place] [address] [place] [address] Physical Therapist Physical Therapy 07/12/21
[2024-11-15 21:16] VITALS: BP 110/69; PULSE 86; RESP 17; TEMP 36.1; O2SAT 99
--- NOTE | 2024-11-16 01:13 | ED_ITS ---
HPI - General Adult General Chief complaint: Recheck/Abnormal Lab/Rx Stated complaint: rib dislo? 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 Came here to be checked out. Related Data Allergies Allergy/AdvReac Type Severity Reaction Status Date / Time lamotrigine Allergy Mild Rash Verified 11/15/24 18:04 pineapple Allergy Unknown ORAL Verified 11/15/24 18:04 SWELLING Review of Systems Review of Systems: All systems reviewed & are unremarkable except as noted in HPI and below PMFSH Past Medical History Medical History Anemia Cervical tear resulting from childbirth Hip dysplasia Perineal repair breakdown Third degree obstetrical tear Surgical History Surgical History History of hip surgery History of shoulder surgery Family History Family History Mother Family history of mental disorder Depression Family history of kidney stones Sibling Family history of mental disorder Depression Father Family history of diabetes mellitus in first degree relative Other Family history of cardiovascular disease Family history of neuropathy Social History Social History Smoking status: Never smoker Second hand tobacco smoke exposure: No Alcohol intake: former Substance use: never Current Housing: Decline to Answer Concerned About Future Housing: Decline to Answer Difficulty Paying Gas/Electric Bills: Decline to Answer Difficulty Paying for Meds: Decline to Answer Currently Unemployed: Decline to Answer Education: Decline to Answer Difficulty w/ Childcare or Family Care: Decline to Answer Gender identity (if verbalized by the patient): Female Sexual Orientation (if Verbalized by the Patient): Straight or Heterosexual Exam Narrative: EXAMINATION OF ORGAN SYSTEMS/BODY AREAS: Constitutional: Vital signs per nursing GENERAL:[No acute distress, non-toxic appearing.] HEAD: Normal with no signs of head trauma. EYES: EOMI, conjunctiva normal ENT: Hearing grossly intact LUNGS: Nonlabored breathing. HEART: [Regular rate and rhythm] ABD: Nondistended EXT: Normal range of motion, no significant tenderness to ribs SKIN: [No rashes or lesions.] NEURO: [Alert and oriented x 3. No gross focal sensory or strength deficits.] PSYCH: Normal affect Course Vital Signs Vital signs: Vital Signs Temperature 96.7 F L 11/15/24 18:49 Pulse Rate 90 11/15/24 18:49 Respiratory Rate 18 11/15/24 18:49 Blood Pressure 113/66 11/15/24 18:49 Pulse Oximetry 99 11/15/24 18:49 Temperature 97.0 F L 11/15/24 21:16 Pulse Rate 86 11/15/24 21:16 Respiratory Rate 17 11/15/24 21:16 Blood Pressure 110/69 11/15/24 21:16 Pulse Oximetry 99 11/15/24 21:16 Medical Decision Making MDM Narrative Medical decision making narrative: Patient presents concern for possible rib dislocation. Rib x-rays here thankfully without any acute dislocation or fracture. Discussed findings with patient, she is requesting pain medicine, states she has already tried lidocaine patch, muscle relaxant, ibuprofen, Tylenol at home. Requesting narcotic. I will give 1 dose of [place]. Discussed with patient unfortunately I cannot prescribe her more since she is followed by pain management. I let her know she can always return to the ER for any further issues. Vital Signs Vital Signs: Vital Signs Temperature 96.7 F L 11/15/24 18:49 Pulse Rate 90 11/15/24 18:49 Respiratory Rate 18 11/15/24 18:49 Blood Pressure 113/66 11/15/24 18:49 Pulse Oximetry 99 11/15/24 18:49 Temperature 97.0 F L 11/15/24 21:16 Pulse Rate 86 11/15/24 21:16 Respiratory Rate 17 11/15/24 21:16 Blood Pressure 110/69 11/15/24 21:16 Pulse Oximetry 99 11/15/24 21:16 Discharge Plan Discharge Clinical Impression: Traumatic injury of rib Patient Disposition: Home Condition: Stable Additional Instructions: Your x-ray thankfully did not show any broken or out of place ribs. You can take your usual pain medications at home and follow-up with your doctor, use ice on your ribs, if things get worse you can always return to the emergency room. Patient Language: Frisian Prescriptions: No Action diclofenac sodium 1 % gel 4 g topical QID Qty: 100 1RF Rx Instructions: apply to affected area on the back naproxen [Naprosyn] 500 mg tablet 500 mg PO BID Qty: 20 0RF cyclobenzaprine 10 mg tablet 10 mg PO TID Qty: 14 0RF tramadol 50 mg tablet 50 mg PO Q8H PRN (Reason: pain) Qty: 60 0RF hydrocodone-acetaminophen 5-325 mg tablet 1 tablet PO Q6H PRN (Reason: pain) Qty: 30 0RF levothyroxine 50 mcg tablet See Rx Instructions .ROUTE .COMPLEX Qty: 114 2RF Rx Instructions: Take 50 mcg daily, on 2 days each week take 100 mcg Follow-up/Referrals: Melia Bautista MD [Primary Care Provider] - 2 Days
== END 2024-11-15 21:18 | disposition home or self-care (01) ==
LOC: ANHED 20:29
PROVIDERS: Emergency Provider Emergency Medicine; PCP Physical Medicine & Rehabilitation Pain Medicine
DX: S29.9XXA Unspecified injury of thorax, initial encounter (principal); Q79.60 Ehlers-Danlos syndrome, unspecified; Z86.2 Personal history of diseases of the blood and blood-forming organs and certain disorders involving the immune mechanism; X50.9XXA Other and unspecified overexertion or strenuous movements or postures, initial encounter
CPT/HCPCS: 71100; 99283; A9270

== ENCOUNTER 2024-11-17 09:08 | Outpatient (CLI) | payer OTHER, SELFPAY ==
--- NOTE | ~2024-11-17 | MR_ITS ---
MRI of the left shoulder Technique: Axial proton-density fat-sat images, coronal proton density fat-sat and T2 fat-sat images, and sagittal T1-weighted and T2 fat-sat images were acquired. Clinical History: Pain Findings: There is mild AC joint degenerative change. Coracoclavicular, coracoacromial, and coracohum eral ligaments are intact. Supraspinatus and infraspinatus tendons are intact, without partial or full-thickness tear. Subscapul naseem tendon intact. Tendon of the long head of the biceps is intact. No labral tear seen. Inferior glenohumeral ligament is intact. No degenerative change or effusion of the glenohumeral join t. No muscle atrophy or edema. There is minimal fluid in the subacromial/subdeltoid bursa. Impression: Questionable minimal subacromial/subdeltoid bursitis. No other significant findings. Reviewed, dictated and finalized at [facility]. Impression: Questionable minimal subacromial/subdeltoid bursitis. No other significant findings.
== END 2024-11-17 09:09 | disposition home or self-care (01) ==
LOC: GOSHIMG 09:08
PROVIDERS: PCP Physical Medicine & Rehabilitation Pain Medicine; Visit Provider Physical Medicine & Rehabilitation Pain Medicine
DX: M25.512 Pain in left shoulder (principal)
CPT/HCPCS: 73221